=== PATIENT | female | born 1995 | race Caucasian/White ===

== ENCOUNTER 2018-07-20 04:59 | Emergency (ER) | payer SELFPAY ==
[~2018-07-20] VITALS: Ht 157.5 cm; Wt 79.4 kg
[2018-07-20] MEDS ORDERED: ACETAMINOPHEN 325 MG TAB PO ONE (05:30)
--- NOTE | 2018-07-20 06:36 | Diagnostic Imaging Report ---
EXAMINATION: Head CT without contrast. HISTORY:Syncope, episode of loss of consciousness, headache with left frontal laceration over the eyebrow. COMPARISON:None. TECHNIQUE: Multidetector axial images were obtained from the foramen magnum to the vertex without contrast. The images were reconstructed using brain and bone algorithms. Thin section brain images were reformatted into coronal and sagittal planes. Dose modulation, iterative reconstruction, and/or weight based adjustment of the mA/kV was utilized to reduce the radiation dose to as low as reasonably achievable. Intravenous contrast: None IMAGE QUALITY: Acceptable. FINDINGS: Skull/scalp: No lytic or blastic. lesions. No surgical changes. Parenchyma: No abnormal density. No acute hemorrhage, mass or acute major vascular territorial infarct. Arteries: No density suggestive of thrombosis. Dural sinuses: No abnormal density suggestive of thrombosis. Ventricles: Mild compensated dilatation due to volume loss. No hydrocephalus. Extra-axial spaces: Incidental posterior fossa, retrocerebellar extra-axial cystic lesion with internal septation and regional mass effect represents an arachnoid cyst. Brain volume: Mild to moderate predominantly frontoparietal cerebral volume loss, advanced for patient's given age. Craniocervical junction: No mass, Chiari malformation, or basilar invagination. Sella: No mass. Paranasal/mastoid sinuses: Mild mucosal thickening in left maxillary and bilateral ethmoid sinuses. Incidental finding: Minimal left supraorbital soft tissue edema and emphysema with focal laceration. IMPRESSION: 1. Minimal left supraorbital soft tissue edema and focal laceration. 2. No acute posttraumatic intracranial abnormality. 3. Mild to moderate generalized predominantly frontoparietal cerebral volume loss, advanced for patient's given age. Signed by: Dr. Meredith Rey M.D. on 07/20/2018 6:33 AM
== END 2018-07-20 07:00 | disposition home or self-care (01) ==
LOC: FSED 04:59
DX: S01.112A Laceration without foreign body of left eyelid and periocular area, initial encounter (principal); R55 Syncope and collapse; W18.39XA Other fall on same level, initial encounter; Y93.89 Activity, other specified; Y92.019 Unspecified place in single-family (private) house as the place of occurrence of the external cause; L03.316 Cellulitis of umbilicus; Z88.1 Allergy status to other antibiotic agents
CPT/HCPCS: 70450; 81025; 93005; 99284